=== PATIENT | female | born 1990 | race African-American/Black ===

== ENCOUNTER 2017-03-30 18:34 | Inpatient (IN) | payer BC ==
[2017-03-30 19:24] LABS: Hemoglobin 12.5 g/dL (12.0-16.0); Mean Corpuscular HGB CONC 32.9 g/dL (32.0-36.0); Mean Corpuscular Hemoglobin 26.7 pg (27.0-31.0); Mean Corpuscular Volume 81.1 fl (81.0-99.0); Platelet Count 239 thou/uL (130-400); RBC Distribution Width 19.4 % (11.5-14.5); Red Blood Cell (RBC) Count 4.69 mill/uL (4.20-5.40); White Blood Cell (WBC) Count 5.7 thou/uL (4.8-10.8)
[2017-03-30 19:43] LABS: ALT (SGPT) 37 U/L (8-55); AST (SGOT) 77 U/L (5-34); Albumin 4.3 g/dL (3.5-5.0); Alkaline Phosphatase 100 U/L (40-150); Anion Gap 15 mmol/L (10-20); BUN (Urea Nitrogen) 13 mg/dL (7.0-18.7); Bilirubin, Total 0.4 mg/dL (0.2-1.2); Calc. Creatinine Clearance 0 mL/min (70-130); Calcium 9.5 mg/dL (7.8-10.44); Carbon Dioxide 25 mmol/L (22-29); Chloride 105 mmol/L (98-107); Estimated GFR-MDRD Greater than 90; Globulin 2.8 g/dL (2.4-3.5); Glucose 95 mg/dL (70-105); Lipase 46 U/L (8-78); Protein, Total 7.1 g/dL (6.0-8.3); Sodium 141 mmol/L (136-145)
[2017-03-30 19:44] LABS: Anisocytosis SLIGHT = 6-15 cells (100X) (0-5/hpf); Band 1 % (5-11); Lymphocytes 82 % (21-51); MDiff Complete? YES; Monocytes 4 % (0-10); Neutrophil 13 % (42-75); Ovalocytes SLIGHT = 2-5 cells (100X) (0-1/hpf); PLT Morphology Comment Appears Adequate
[2017-03-30 23:25] LABS: Bilirubin Negative (Negative); Blood, Urine Negative (Negative); Clarity CLEAR (Clear); Glucose, Urine (Dipstick) Negative (Negative); Leukocyte Trace (Negative); Nitrite Negative (Negative); Protein, Urine (Dipstick) 30 mg/dL (Neg-Trace); Specific Gravity, Urine 1.025 (1.002-1.036); pH, Urine 7.5 (5.0-9.0)
[2017-03-30 23:26] LABS: Pregnancy Test - Urine (BHCG) Negative (Negative); Pregu Control Background? CLEAR/WHITE (CLR/WHITE); Pregu Control Bar Appear? YES (CONTROL BAR); Specific Gravity 1.025 (1.002-1.036)
[2017-03-30] MEDS ORDERED: Ondansetron HCl/PF 4 MG/2 ML Vial ONE (23:26)
[2017-03-30] MEDS ORDERED: Morphine 4 MG/ML VIAL ONE (23:26)
[2017-03-30 23:27] LABS: Bacteria/HPF 2+ HPF (None Seen); Hyaline Casts/LPF 0-3 HYALINE CAST LPF (0-3 Hyaline); RBC/HPF 0-3 HPF (0-3); Squamous Epithelial 0-3 HPF (0-3)
--- NOTE | 2017-03-31 00:01 | ULT ---
RIGHT UPPER QUADRANT ULTRASOUND 03/30/17 HISTORY: Epigastric pain. FINDINGS: The liver, right kidney and pancreas appear normal. There are mobile shadowing gallstones with sludge in the gallbladder without gallbladder wall thickening or pericholecystic fluid. The common duct karla sures 5 mm in diameter. No free fluid is seen in Napoles's pouch. A positive Marie's sign was repor doris by the fitness attendant. IMPRESSION: Cholelithiasis with sonographic positive Marie's sign. If there is clinical suspicion for acute chol ecystitis, further evaluation with HIDA scan should be performed. POS: [facility]
[2017-03-31] MEDS ORDERED: Piperacillin/Tazobactam 4.5 GM in Sodium Chloride 0.9% 100 ML IVPB SCH (01:00)
[2017-03-31] MEDS ORDERED: Piperacillin-Tazo-Dextrose,Iso 3.375 GM in Premix Bag 1 BAG IVPB SCH ×2 (06:45→12:00)
--- NOTE | 2017-03-31 08:14 | HP ---
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 Liver function tests are normal. White count 5, hemoglobin 12. ALLERGIES: None. TOBACCO: None. ALCOHOL: None. MEDICATIONS: None. She was given hydrocodone for a post- and she used one of these for her cu rrent biliary problems, but it did not help. PAST MEDICAL HISTORY: Noncontributory. SOCIAL HISTORY: The patient is and has 2 children. She is to return to work soon. Her husb and is working currently. REVIEW OF SYSTEMS: [place] noncontributory. PHYSICAL EXAMINATION: VITAL SIGNS: Blood pressure 120/74, respiratory rate 20, heart rate 74. HEENT: Unremarkable. Sclerae nonicteric. SKIN: Nonjaundiced. LUNGS: Clear to auscultation. CARDIAC: Regular rate and rhythm without murmur or gallop. ABDOMEN: Soft, tenderness in right upper quadrant with mild guarding. EXTREMITIES: Unremarkable. ASSESSMENT AND PLAN: Cholelithiasis, acute and chronic and cholelithiasis. I recommended laparoscop ic video cholecystectomy. Risk of infection, bleeding, visceral and biliary injury explained. She c onsents. We will plan laparoscopic cholecystectomy today and discharged postoperatively.
[2017-03-31] MEDS ORDERED: Acetaminophen 1,000 MG in Premix Bag 1 BAG IVPB SCH (08:15)
[2017-03-31] MEDS ORDERED: Scopolamine 1.5 mg/72 hour Patch TOP SCH (08:15)
[2017-03-31] MEDS ORDERED: Sodium Chloride 0.9% 1,000 ML IV SCH (08:15)
[2017-03-31] MEDS ORDERED: Ketorolac Tromethamine 30 MG/ML VIAL IVP SCH (08:15)
[2017-03-31] MEDS ORDERED: Ketorolac Tromethamine 30 MG/ML VIAL ONE (08:20)
[2017-03-31] MEDS ORDERED: Scopolamine 1.5 mg/72 hour Patch ONE (08:20)
[2017-03-31] MEDS ORDERED: Midazolam HCl 2 mg/2 ml Vial ONE (09:05)
[2017-03-31] MEDS ORDERED: Bupivacaine/Epinephrine 0.25% 30 ML VIAL ONE (09:15)
[2017-03-31] MEDS ORDERED: Fentanyl 100 MCG/2 ML VIAL ONE ×2 (11:03)
[2017-03-31] MEDS ORDERED: Dexamethasone 20 MG/5 ML VIAL ONE (13:07)
[2017-03-31] MEDS ORDERED: Lidocaine 1% PF 5 ML VIAL ONE (13:07)
[2017-03-31] MEDS ORDERED: Glycopyrrolate 0.2 MG/ML 5 ML SYRINGE ONE (13:07)
[2017-03-31] MEDS ORDERED: Ondansetron HCl/PF 4 MG/2 ML Vial ONE (13:07)
[2017-03-31] MEDS ORDERED: PROPOFOL 200 MG/20 ML VIAL ONE (13:07)
--- NOTE | 2017-03-31 13:24 | OP ---
DATE OF PROCEDURE: 03/31/2017 PREOPERATIVE DIAGNOSES: Chronic cholecystitis, cholelithiasis, 8 weeks . POSTOPERATIVE DIAGNOSES: Chronic cholecystitis, cholelithiasis, 8 weeks . PROCEDURE: Laparoscopic video cholecystectomy. SURGEON: Dr. Dick Barr ANESTHESIA: General. Local 0.25% Marcaine with epinephrine, 30 mL. PROCEDURE: The patient was taken to the operating room where under general anesthesia, abdomen was p repared with ChloraPrep, draped in routine fashion. Local anesthetic infiltrated into skin and subcu taneous tissue about each port site. Infraumbilical incision made and pneumoperitoneum to 15 mmHg ob tained with the Veress needle, replacing it with a 5 port. Video laparoscope inserted. Right latera l subcostal incision made midclavicular and anterior axillary lines and 5 ports placed. Right subxip hoid incision made and 11 port placed. Liver appeared to be normal. Gallbladder was tense. There w ere small stones obstructing the cystic duct outlet. Fundus grasped and reflected cephalad. Infundi bulum grasped and reflected laterally. Cystic artery and duct dissected free. Critical view obtaine d with pericholecystic dissection 2/3 cystic plate and cystic artery and duct doubly clipped proximal ly, divided, and gallbladder dissected free from the liver bed obtaining good hemostasis prior to div ision of final peritoneal attachments. Gallbladder and contents removed and submitted to Pathology. Good hemostasis ensured with the cautery. Irrigant and pneumoperitoneum evacuated all its skin inci sions approximated with interrupted subdermal 4-0 Monocryl and DermaGlue applied.
== END 2017-03-31 15:20 | disposition home or self-care (01) | DRG 769 ==
LOC: ERS 18:34 → ERHOLD 03-31 00:37 → SURG A 03-31 06:31
PROVIDERS: ADMIT Specialist; ATTEND Specialist
PROC: 0FT44ZZ Resection of Gallbladder, Percutaneous Endoscopic Approach (ICD-10-PCS; principal; 2017-03-31)
DX: O99.63 Diseases of the digestive system complicating the puerperium (principal); K80.10 Calculus of gallbladder with chronic cholecystitis without obstruction
CPT/HCPCS: 36415; 76705; 80053; 81003; 81015; 81025; 83690; 85025; 88304; 96361; 96365; 96375; J0131; J1100; J1885; J2001; J2250; J2270; J2405; J2543; J2704; J3010; J7050

== ENCOUNTER 2017-04-04 10:56 | Inpatient (IN) | payer BC ==
[2017-04-04] MEDS ORDERED: Promethazine HCl 25 MG/ML VIAL ONE (12:08)
[2017-04-04] MEDS ORDERED: ISOVUE-370 76%-LOCM 1 ML ONE (12:30)
[2017-04-04] MEDS ORDERED: Iopamidol 370 76% 50 ML VIAL FS ONE (12:30)
[2017-04-04 12:31] LABS: ALT (SGPT) 600 U/L (8-55); AST (SGOT) 497 U/L (5-34); Albumin 4.3 g/dL (3.5-5.0); Alkaline Phosphatase 268 U/L (40-150); Anion Gap 18 mmol/L (10-20); BUN (Urea Nitrogen) 11 mg/dL (7.0-18.7); Bilirubin, Total 4.9 mg/dL (0.2-1.2); Calc. Creatinine Clearance 0 mL/min (70-130); Calcium 10.3 mg/dL (7.8-10.44); Carbon Dioxide 25 mmol/L (22-29); Chloride 100 mmol/L (98-107); Estimated GFR-MDRD Greater than 90; Globulin 2.6 g/dL (2.4-3.5); Glucose 97 mg/dL (70-105); Lipase 24 U/L (8-78); Potassium 3.7 mmol/L (3.5-5.1); Protein, Total 6.9 g/dL (6.0-8.3); Sodium 139 mmol/L (136-145)
[2017-04-04 12:32] LABS: #Basophils 0.1 thou/uL (0.0-0.2); #Lymphocytes 1.3 thou/uL (1.20-3.40); #Monocytes 0.4 thou/uL (0.11-0.59); %Basophils 1.8 % (0.0-1.0); %Eosinophils 0.3 % (0.0-10.0); %Lymphocytes 34.6 % (21.0-51.0); %Monocytes 9.8 % (0.0-10.0); %Neutrophils 53.6 % (42.0-75.0); Hemoglobin 14.3 g/dL (12.0-16.0); Mean Corpuscular HGB CONC 32.9 g/dL (32.0-36.0); Mean Corpuscular Hemoglobin 26.8 pg (27.0-31.0); Mean Corpuscular Volume 81.4 fl (81.0-99.0); Mean Platelet Volume 10.6 fL (7.4-10.4); Platelet Count 259 thou/uL (130-400); RBC Distribution Width 19.8 % (11.5-14.5); Red Blood Cell (RBC) Count 5.33 mill/uL (4.20-5.40); White Blood Cell (WBC) Count 3.7 thou/uL (4.8-10.8)
[2017-04-04 14:27] LABS: Bilirubin Large (Negative); Blood, Urine Negative (Negative); Clarity CLEAR (Clear); Glucose, Urine (Dipstick) Negative (Negative); Leukocyte Small (Negative); Nitrite Positive (Negative); Protein, Urine (Dipstick) 30 mg/dL (Neg-Trace); Specific Gravity, Urine 1.024 (1.002-1.036)
[2017-04-04 14:29] LABS: Bacteria/HPF None Seen HPF (None Seen); Hyaline Casts/LPF 4-6 HYALINE CAST LPF (0-3 Hyaline); Pathc Cast-AUWi Flag 1.49 (0-2.49); RBC/HPF 0-3 HPF (0-3); Squamous Epithelial 0-3 HPF (0-3); WBC/HPF 0-3 HPF (0-3)
[2017-04-04 14:31] LABS: Pregnancy Test - Urine (BHCG) Negative (Negative); Pregu Control Background? CLEAR/WHITE (CLR/WHITE); Pregu Control Bar Appear? YES (CONTROL BAR); Specific Gravity 1.024 (1.002-1.036)
--- NOTE | 2017-04-04 15:26 | CT ---
CT SCAN OF ABDOMEN AND PELVIS WITH IV CONTRAST: Date: 04/04/17 HISTORY: 26-year-old female with vomiting and dizziness following gallbladder surgery done on Wednesday. FINDINGS: There is some mild linear stranding in the left base, probably minimal subsegmental atelectasis. Stat us post cholecystectomy with some postoperative changes in the operative bed region. There is some di latation of the common bile duct up to 0.8 cm with some dilatation of intrahepatic ducts as well. Thi s is a new finding when compared to the prior ultrasound study of 03/30/17. Etiology for this new renay iary tree dilatation is not definitively evidence on this study. The pancreatic duct is borderline di lated as well. Spleen is unremarkable. No renal calculus or acute obstruction. The appendix is dil ated but appears to be thin-walled and has some fecal material or debris within it. Outer diameter of the appendix approximates 0.8 cm. There is no significant periappendiceal fat stranding to suggest s ignificant acute appendicitis. There is some free fluid in the pelvis. Approximately 3.6 cm diameter cyst in the region of the left adnexa/left ovary. IMPRESSION: 1. Recent status post cholecystectomy. Interval development of dilatation of the common bile duct, c ommon hepatic and intrahepatic ducts, and pancreatic duct since the ultrasound study of 03/30/17. Parris ology is not certain, but the possibility of a distal ductal stone certainly is not excluded. 2. No renal calculus or acute obstruction. 3. The appendix measures 0.8 cm outer dimension, which is large, but there is no overt appendiceal w all thickening or periappendiceal fat stranding that would suggest acute appendicitis. 4. Cul-de-sac fluid. 5. 3.6 cm diameter left ovarian/adnexal cyst. POS: [facility]
[2017-04-04] MEDS ORDERED: Piperacillin/Tazobactam 3.375 GM in Sodium Chloride 0.9% 100 ML IVPB SCH (16:00)
[2017-04-04] MEDS ORDERED: Dextrose 50% Abboject 50 ML SYRINGE SLOW IVP PRN (17:10)
[2017-04-04] MEDS ORDERED: Dextrose 5% in Water 1,000 ML IV PRN (17:10)
[2017-04-04] MEDS ORDERED: Calcium Carbonate 500 MG ChewTAB PO PRN (17:10)
[2017-04-04] MEDS ORDERED: Mag-Al 1200 mg/1200 mg/30 ML UDCUP PO PRN (17:10)
[2017-04-04] MEDS ORDERED: hydrALAZINE 20 MG/ML VIAL SLOW IVP PRN (17:10)
[2017-04-04] MEDS ORDERED: Ondansetron HCl/PF 4 MG/2 ML Vial IVP PRN (17:10)
[2017-04-04] MEDS ORDERED: Morphine 4 MG/ML Carpuject SLOW IVP PRN ×2 (17:10→17:23)
[2017-04-04] MEDS: D5 1/2 NS w/20 mEq KCL 1,000 ML IV SCH (17:54)
[2017-04-04] MEDS: Piperacillin/Tazobactam 3.375 GM in Sodium Chloride 0.9% 100 ML IVPB SCH (17:55)
[2017-04-04] MEDS ORDERED: Promethazine 25 MG TAB PO PRN (18:17)
--- NOTE | 2017-04-04 19:08 | HP ---
CHIEF COMPLAINT: Abdominal pain, nausea, and vomiting. HISTORY OF PRESENT ILLNESS: This is a 26-year-old -[place] female who is 8 weeks , who had laparoscopic cholecystectomy by Dr. Barr last Wednesday. They called me earlier today bec ause she was not feeling well, bloated, nausea, and vomiting. Seen in the emergency department, she has been found to have elevated bilirubin. CT scan shows no abdominal fluid collection, but dilated intrahepatic and extrahepatic bile ducts. She is being readmitted for presumed retained common duct stone. She is hemodynamically stable, afebrile. PAST MEDICAL HISTORY: Otherwise negative. PAST SURGICAL HISTORY: Denies. MEDICINES: None. ALLERGIES: No known drug allergies. SOCIAL HISTORY: No smoking, alcohol, or other drugs. REVIEW OF SYSTEMS: Otherwise negative. PHYSICAL EXAMINATION: VITAL SIGNS: Pulse 75, blood pressure 139/85, temperature 98.1. She is afebrile. HEENT: Sclerae anicteric. Oropharynx clear. NECK: No lymphadenopathy. CHEST: Clear. HEART: Regular rate and rhythm. ABDOMEN: Soft, minimally distended, minimally tender at the incisions. The incisions are all healin g well without evidence of infection. LABORATORY DATA: White blood cell count is 3, hemoglobin 14, platelet count is 259. Sodium 139, pot assium 3.7, creatinine 0.71, bilirubin 4.9. AST and ALT are elevated at 497 and 600, alkaline phosph atase 268. Urine reveals positive nitrites, small leukocyte esterase, but only 0-3 wbc's. ASSESSMENT: Retained common duct stone status post laparoscopic cholecystectomy. PLAN: Admit for IV fluids, supportive care. Likely we will need ERCP. Consult GI in the morning.
[2017-04-04] MEDS: Promethazine HCl 25 MG/ML VIAL IM PRN (19:44)
[2017-04-04] MEDS: Famotidine 20 MG TAB PO SCH (20:01)
[2017-04-04] MEDS: Famotidine/PF 20 mg/2ml Vial SLOW IVP SCH (20:31)
[2017-04-05] MEDS: Piperacillin/Tazobactam 3.375 GM in Sodium Chloride 0.9% 100 ML IVPB SCH ×4 (01:01→18:40)
[2017-04-05] MEDS: D5 1/2 NS w/20 mEq KCL 1,000 ML IV SCH ×3 (01:31→17:07)
[2017-04-05] MEDS: Promethazine HCl 25 MG/ML VIAL IM PRN ×3 (01:56→21:28)
[2017-04-05] MEDS: Ketorolac Tromethamine 30 MG/ML VIAL IVP PRN ×2 (01:56→08:06)
[2017-04-05 04:20] LABS: #Eosinphils 0.1 thou/uL (0.0-0.7); #Lymphocytes 2.1 thou/uL (1.20-3.40); #Monocytes 0.5 thou/uL (0.11-0.59); #Neutrophils 1.9 thou/uL (1.40-6.50); %Basophils 0.8 % (0.0-1.0); %Eosinophils 1.6 % (0.0-10.0); %Lymphocytes 44.8 % (21.0-51.0); %Monocytes 11.1 % (0.0-10.0); %Neutrophils 41.7 % (42.0-75.0); Hemoglobin 11.8 g/dL (12.0-16.0); Mean Corpuscular HGB CONC 32.6 g/dL (32.0-36.0); Mean Corpuscular Hemoglobin 26.6 pg (27.0-31.0); Mean Corpuscular Volume 81.8 fl (81.0-99.0); Mean Platelet Volume 9.5 fL (7.4-10.4); Platelet Count 249 thou/uL (130-400); RBC Distribution Width 19.5 % (11.5-14.5); Red Blood Cell (RBC) Count 4.43 mill/uL (4.20-5.40); White Blood Cell (WBC) Count 4.6 thou/uL (4.8-10.8)
[2017-04-05 04:30] LABS: ALT (SGPT) 541 U/L (8-55); AST (SGOT) 463 U/L (5-34); Albumin 3.7 g/dL (3.5-5.0); Alkaline Phosphatase 235 U/L (40-150); Anion Gap 12 mmol/L (10-20); BUN (Urea Nitrogen) 8 mg/dL (7.0-18.7); Bilirubin, Total 4.4 mg/dL (0.2-1.2); Calc. Creatinine Clearance 0 mL/min (70-130); Calcium 9.3 mg/dL (7.8-10.44); Carbon Dioxide 27 mmol/L (22-29); Chloride 104 mmol/L (98-107); Estimated GFR-MDRD Greater than 90; Globulin 2.4 g/dL (2.4-3.5); Glucose 112 mg/dL (70-105); Lipase 60 U/L (8-78); Potassium 3.5 mmol/L (3.5-5.1); Protein, Total 6.1 g/dL (6.0-8.3); Sodium 139 mmol/L (136-145)
[2017-04-05] MEDS: Famotidine/PF 20 mg/2ml Vial SLOW IVP SCH ×2 (08:05→21:29)
[2017-04-05] MEDS: Famotidine 20 MG TAB PO SCH ×2 (08:22→20:21)
[2017-04-05 10:36] VITALS: BMI 27.4
[2017-04-05] MEDS ORDERED: Iothalamate Meglumine 60% 50 ML VIAL FS ONE (13:33)
[2017-04-05] MEDS ORDERED: PHENYLEPHRINE-NS 100 MCG/ML 10 ML SYRINGE ONE (13:40)
[2017-04-05] MEDS ORDERED: Fentanyl 100 MCG/2 ML VIAL ONE (13:40)
[2017-04-05] MEDS ORDERED: Dexamethasone 20 MG/5 ML VIAL ONE (13:40)
[2017-04-05] MEDS ORDERED: Ondansetron HCl/PF 4 MG/2 ML Vial ONE (13:40)
[2017-04-05] MEDS ORDERED: Glycopyrrolate 0.2 MG/ML 5 ML SYRINGE ONE (13:40)
[2017-04-05] MEDS ORDERED: Propofol 200 MG/20 ML VIAL ONE (13:40)
[2017-04-05] MEDS ORDERED: Succinylcholine Chloride 20 MG/ML 10 ml SYRINGE FS ONE (13:40)
[2017-04-05] MEDS ORDERED: Lidocaine 1% PF 5 ML VIAL ONE (13:40)
--- NOTE | 2017-04-05 16:11 | RAD ---
ERCP: History: Biliary dilatation. FINDINGS: Intraoperative fluoroscopy is provided for ERCP. Spot fluoroscopic images show endoscopic catheter ov erlying the duodenum with catheterization of the common duct. Opacification shows caliber at the limi ts of normal. No filling defects are reliably demonstrated. POS: [facility]
[2017-04-05] MEDS ORDERED: Promethazine HCl 25 MG/ML VIAL IM PRN (16:19)
[2017-04-05] MEDS ORDERED: Promethazine HCl 25 MG/ML VIAL SLOW IVP PRN (16:19)
[2017-04-05] MEDS ORDERED: Ondansetron HCl/PF 4 MG/2 ML Vial IVP PRN ×2 (16:19→18:53)
[2017-04-05] MEDS ORDERED: hydrALAZINE 20 MG/ML VIAL ONE (16:20)
--- NOTE | 2017-04-05 16:21 | CON ---
DATE OF CONSULTATION: 04/05/2017 REFERRING PHYSICIAN: Dr. Nikolay Cope - Dr. Dick Barr REASON FOR CONSULTATION: Abdominal pain, nausea, and vomiting, abnormal liver function tests raising the possibility of a common bile duct stone. HISTORY OF PRESENT ILLNESS: Ms. Luca Kc is a very pleasant 26-year-old female seen by Dr. Barr last week with abdominal pain, nausea, and vomiting. She had a sonogram done whic h revealed no gallstones. At that time, the CBD was measuring 5 mm. Also, liver function tests are actually not elevated except for mildly elevated AST of 77. The patient got discharged home y night after her surgery. After she got home she started having some abdominal pain, nausea, and vo miting. She was unable to keep anything down. She has no fever or chills. She came back to the ER yesterday and had an abdominal CAT scan. The CAT scan shows dilation of the common bile duct and als o intrahepatic ducts. There is no definite shadowing seen of the common bile duct. The gallbladder fossa is free of . There is no bile leak seen. Her LFTs have bumped up. Her AST is 463, ALT 5 41, alkaline phosphatase 235, bilirubin is 4.4. Her Chem-7 is normal. Lipase is at 65. Her CBC is actually normal and there is no leukocytosis. WBC 4600, hemoglobin 11.8, hematocrit 36.2. The above findings are indicative of possibly a common bile duct stone. No other relevant history. ALLERGIES: None. SOCIAL HISTORY: The patient does not smoke or drink alcohol. MEDICAL ILLNESSES: None. SURGERIES: Recent laparoscopic cholecystectomy on 03/30/[address] Barr. The only surgery. MENSTRUAL HISTORY: The patient is 2 months . FAMILY HISTORY: Unremarkable. REVIEW OF SYSTEMS: Totally unremarkable except for abdominal pain, nausea, and vomiting. PHYSICAL EXAMINATION: GENERAL: She is comfortable, in no distress. VITAL SIGNS: She is afebrile. Temperature 98.1 degrees Fahrenheit, pulse is 57, blood pressure 154/ 99. HEENT: She is icteric. NECK: Supple. No adenitis or thyromegaly noted. CARDIOVASCULAR: First and second heart sounds normal. LUNGS: Clear to auscultation. ABDOMEN: Soft. The abdomen is nondistended. Abdomen is tender over the right upper quadrant and ep igastric area. There is no rebound or guarding. No organomegaly or masses. EXTREMITIES: Reveal no edema. LABORATORY DATA: Shows a normal CBC, hemoglobin 11.8, hematocrit 36.2, WBC 4600 polymorphs 41, lymph ocytes 44, monocytes 11, hemoglobin 11.8, hematocrit 36.2. Chem-7 is normal. Bilirubin is 4.4, AST 463, ALT 541, alkaline phosphatase 236. Lipase is 60. Abdominal CAT scan done shows some dilation o f the common bile duct and intrahepatic masses. CLINICAL IMPRESSION: The patient most likely has a retained common duct stone, from the abnormal katie er function tests and abdominal pain, nausea, and vomiting. I did speak to the patient's abo ut the course of treatment which include ERCP and removal of common duct stone. Both were explained about the ERCP procedure, the risks and benefits, etc. The risks including perforation, bleeding, se psis, pancreatitis. PLAN: I will plan for the ERCP later on today.
[2017-04-05] MEDS ORDERED: Indomethacin 50 MG SUPP PR SCH (16:30)
[2017-04-05] MEDS ORDERED: Indomethacin 50 MG SUPP ONE (16:38)
[2017-04-05] MEDS ORDERED: Promethazine HCl 25 MG/ML VIAL ONE (16:54)
--- NOTE | 2017-04-05 17:49 | PRG ---
DATE OF SERVICE: 04/05/2017, 10:00 a.m. HISTORY OF PRESENT ILLNESS: Luca Kc is a 26-year-old black female status post 03/31/2017 laparo scopic cholecystectomy, admitted from the emergency room performed as an outpatient. The patient is 8 weeks , preoperative liver function tests, bile duct caliber were normal. She called pos toperatively requesting something for nausea, Saroj was called in and she was admitted over the week end by Dr. Cope in my absence on 04/04/2017 yesterday complaining of increased abdominal pain. Bi lirubin is noted to be elevated to 4 and liver function tests were elevated, bile duct was dilated on the CT scan, no significant fluid was noted. Dr. Rich has been consulted and ERCP planned toolivier y. OBJECTIVE: VITAL SIGNS: Temperature 98.1 degrees, 57, 164/91. LUNGS: Clear to auscultation. CARDIAC: Regular rate and rhythm without murmur, rub or gallop. ABDOMEN: Soft, mild tenderness. No distention. ASSESSMENT AND PLAN: Choledocholithiasis. We await ERCP by Dr. Rich.
[2017-04-05] MEDS ORDERED: Ondansetron ODT 8 MG TAB PO PRN (18:53)
[2017-04-05] MEDS ORDERED: Ondansetron ODT 4 MG TAB PO PRN (18:53)
[2017-04-05] MEDS ORDERED: Mag-Al 1200 mg/1200 mg/30 ML UDCUP PO PRN (18:53)
[2017-04-05] MEDS ORDERED: Metoclopramide HCl 10 MG/2 ML VIAL IVP PRN (18:53)
[2017-04-05] MEDS ORDERED: Ondansetron ORAL SOLN. 4 MG/5 ML UDCUP PO PRN ×2 (18:53)
[2017-04-05] MEDS ORDERED: Ondansetron ODT 8 MG TAB SL PRN (18:53)
--- NOTE | 2017-04-05 23:15 | PRG ---
DATE OF SERVICE: 04/05/2017 TIME OF VISIT: 8:00 p.m. SUBJECTIVE: Ms. Luca Kc is a 26-year-old female, who had laparoscopic cholecystectomy on 2017. The patient has developed abdominal pain, nausea, and vomiting and was found to have abnormal LFTs and dilated CBD and CAT scan. She underwent an ERCP. The ERCP was somewhat difficult and it wa s a little lengthy procedure. The patient in the postoperative area. The patient is doing wel l at the present time. She has no abdominal pain, but she complains of nausea. She actually feels h ungry and she wants to eat. OBJECTIVE: VITAL SIGNS: Stable. ABDOMEN: Soft and nontender. RECOMMENDATIONS: 1. Clear liquid diet. 2. Liver function tests and lipase tomorrow. 3. If she does well, we will consider discharge home hopefully tomorrow presuming that she has no po stoperative complications.
[2017-04-06] MEDS: Piperacillin/Tazobactam 3.375 GM in Sodium Chloride 0.9% 100 ML IVPB SCH ×3 (00:46→12:17)
[2017-04-06 04:20] LABS: ALT (SGPT) 517 U/L (8-55); AST (SGOT) 328 U/L (5-34); Albumin 3.8 g/dL (3.5-5.0); Alkaline Phosphatase 246 U/L (40-150); Bilirubin, Direct 1.2 mg/dL (0.1-0.3); Protein, Total 6.5 g/dL (6.0-8.3)
[2017-04-06 04:24] LABS: #Lymphocytes 1.3 thou/uL (1.20-3.40); #Monocytes 0.7 thou/uL (0.11-0.59); #Neutrophils 6.5 thou/uL (1.40-6.50); %Basophils 0.1 % (0.0-1.0); %Eosinophils 0.1 % (0.0-10.0); %Lymphocytes 15.5 % (21.0-51.0); %Monocytes 7.7 % (0.0-10.0); %Neutrophils 76.6 % (42.0-75.0); Hemoglobin 12.1 g/dL (12.0-16.0); Mean Corpuscular HGB CONC 31.6 g/dL (32.0-36.0); Mean Corpuscular Hemoglobin 25.9 pg (27.0-31.0); Mean Corpuscular Volume 81.8 fl (81.0-99.0); Mean Platelet Volume 9.8 fL (7.4-10.4); Platelet Count 266 thou/uL (130-400); RBC Distribution Width 19.9 % (11.5-14.5); Red Blood Cell (RBC) Count 4.67 mill/uL (4.20-5.40); White Blood Cell (WBC) Count 8.5 thou/uL (4.8-10.8)
[2017-04-06 04:33] LABS: Lipase 2067 U/L (8-78)
[2017-04-06] MEDS: Ketorolac Tromethamine 30 MG/ML VIAL IVP PRN ×2 (06:40→12:16)
--- NOTE | 2017-04-06 06:42 | OP ---
DATE OF PROCEDURE: 04/05/2017 OPERATIVE PROCEDURES: 1. Endoscopic retrograde cholangiopancreatography. 2. Papillotomy. 3. Balloon sweep of bile duct with the balloon size 9.9-12 mm. PREOPERATIVE DIAGNOSES: Status post cholecystectomy, a week ago, presents with abdominal pain and ab normal liver function tests. The CAT scan showed dilated CBD. The patient's symptoms were suggestiv e of retained bile duct stone. The patient is undergoing endoscopic retrograde cholangiopancreatogra phy. POSTOPERATIVE DIAGNOSES: 1. Normal caliber bile duct with a filling defect. 2. Normal pancreatic duct. PROCEDURE IN DETAIL: The patient was placed on her back and was given sedation by Anesthesia Departm ent and the patient was intubated. The patient was placed on her left lateral position on the fluoro scopy table. A bite block was placed. A PentHadapt video duodenoscope under direct vision was passed do wn the oropharynx, past the gastroesophageal junction, into the descending duodenum. The papilla was identified. There was no bile drainage noted. However, there was some bile staining of the papilla noted. The papilla was cannulated with a guidewire directly into the pancreatic duct. Less than 0. 5 cc of contrast injection to the pancreatic duct. Subsequently, the fluoroscopy was used to advance these guidewire into the common bile duct selectively. The scope was falling back into the stomach and advanced back into the descending duodenum again. Finally, I was able to do a papillotomy at 12 o'clock position and a 1.5 cm sized . Injection of contrast does show a filling defect probably measured at 8 mm. However, the scope fell back into the stomach and there was problem with this ins ufflation. The scope was removed. The scope was rechecked . The scope was advanced back into the descending duodenum. water. The papillotome was used to cannulate the CBD again. The beni dewire was advanced into the common bile duct. The papillotome was removed. A biliary balloon size 9.9-12 mm passed over the guidewire into the common bile duct. Injection of the contrast does not de finitely show the filling defect which I saw before. It appears that the stone probably passed out. However, the filling defect in the distal CBD which appears more . The balloon was inflated an d brought out through the papillotomy four times. There was good emptying of bile duct noted and I c ould not really see any stone coming out and it probably passed out after the papillotomy. The stoma ch was decompressed and the scope was removed. RECOMMENDATIONS: 1. Indocin suppositories . 2. Clear liquid diet. 3. CBC, LFTs and lipase tomorrow. If the patient has no untoward effects like pancreatitis, conside r discharge home tomorrow.
[2017-04-06] MEDS: Famotidine/PF 20 mg/2ml Vial SLOW IVP SCH (08:56)
[2017-04-06] MEDS: Famotidine 20 MG TAB PO SCH (08:56)
[2017-04-06] MEDS: D5 1/2 NS w/20 mEq KCL 1,000 ML IV SCH (10:32)
--- NOTE | 2017-04-06 13:57 | PRG ---
DATE OF SERVICE: 04/06/2017 HISTORY OF PRESENT ILLNESS: Luca Kc is a very pleasant 26-year-old female stat us post laparoscopic cholecystectomy in 03/30/2017. The patient came back with abdominal pain, nause a, and was found to have abnormal LFTs, dilated bile duct. She underwent ERCP, papillotomy and ballo on sweep yesterday. She has done well overnight. She has very minimal abdominal discomfort and mild nausea. She is tolerating clear liquid diet. No nausea or vomiting. PHYSICAL EXAMINATION: GENERAL: She appears comfortable in no distress. VITAL SIGNS: She is afebrile. Pulse is 67, blood pressure 128/71. CARDIOVASCULAR: Within normal limits. ABDOMEN: Very benign. Abdomen is soft and nondistended. She is mildly tender on deep palpation of the epigastric area. The lab data is markedly improved. The WBC is 8500, hemoglobin 12.1, hematocrit 38.2. Chemistry james el; bilirubin is down to 2 from 4.4. AST, ALT, and alkaline phosphatase is coming down. Unfortunate ly, she has what appears to be mild postop . Lipase 216. The patient actually feels hungry and she wants to eat. The abdominal exam is very benign. RECOMMENDATIONS: 1. Mechanical soft diet today. 2. If the patient has no abdominal pain, nausea or vomiting, consider discharge later on today or to [place]. Will follow up as an outpatient.
[2017-04-06 16:40] VITALS: BP 144/90; TEMP 98.3
--- NOTE | 2017-04-06 17:26 | PRG ---
DATE OF SERVICE: 04/06/2017 SUBJECTIVE: Ms. Kc is doing well today. Bilirubin is down to 2. She is feeling much better. Bronwyn john has minimal pain. OBJECTIVE: LUNGS: Clear to auscultation. ABDOMEN: Soft, nontender, minimal tenderness in the right upper quadrant. EXTREMITIES: Surgical wounds look good. ASSESSMENT AND PLAN: Resolved choledocholithiasis, status post endoscopic retrograde cholangiopancre atography, sphincterotomy. Liver function tests are on the improvement. She had mild elevation of h er lipase postoperatively, but she is tolerating her diet. Patient plans to discharge her home today with [id number] Tylenol and ibuprofen as needed for pain and she stated that the tramadol made her too drowsy. She does not want to be drowsy as she needs to continue to care for her young child jake. She will call me should she have any problems. Otherwise, I will see her in the office in 2-3 weeks.
--- NOTE | 2017-04-06 23:23 | DIS ---
DATE OF ADMISSION: 04/04/2017 DATE OF DISCHARGE: 04/06/2017 HISTORY: Luca mast is a 26-year-old black female, who underwent laparoscopic cholecystectomy, pre sented from the emergency room for cholelithiasis, cholecystitis, common bile duct, and liver functio n tests were normal preoperatively. Postoperatively, she did well except for some nausea and vomitin g. She presented to the emergency room with worsening pain and nausea and vomiting. Liver function tests were elevated. She was admitted, given IV fluids and Dr. Rich consulted on 04/05/2017. S he underwent ERCP, sphincterotomy, stone extraction, the ERCP was difficult. Post-procedure, the pat ient tolerated liquids next morning, her lipase was elevated although she had minimal tenderness in r ight subcostal. She is given diet, tolerated her diet and her abdomen remained soft, nontender. She is discharged home at this time, we will follow up in my office as needed. She will take Tylenol an d Motrin [id number] as needed for pain. She will call my office should she have any problems.
== END 2017-04-06 17:50 | disposition home or self-care (01) | DRG 395 ==
LOC: ERS 10:56 → SURG A 15:20
PROVIDERS: ADMIT Surgery; ATTEND Surgery
PROC: 0F798ZZ Dilation of Common Bile Duct, Via Natural or Artificial Opening Endoscopic (ICD-10-PCS; principal; 2017-04-05)
PROC: BF110ZZ Fluoroscopy of Biliary and Pancreatic Ducts using High Osmolar Contrast (ICD-10-PCS; 2017-04-05)
DX: K91.86 Retained cholelithiasis following cholecystectomy (principal); R74.8 Abnormal levels of other serum enzymes
CPT/HCPCS: 36415; 74177; 74330; 80053; 80076; 81003; 81015; 81025; 83690; 85025; 96365; 96366; 96367; 96375; J0360; J1100; J1610; J1885; J2001; J2270; J2405; J2543; J2550; J2704; J2765; J3010; J7050; Q9961; S0028

== ENCOUNTER 2017-07-19 16:17 | Emergency (ER) | payer BC ==
[2017-07-19 16:44] LABS: Hemoglobin 13.8 g/dL (12.0-16.0); Mean Corpuscular HGB CONC 33.7 g/dL (32.0-36.0); Mean Corpuscular Hemoglobin 30.2 pg (27.0-31.0); Mean Corpuscular Volume 89.4 fl (81.0-99.0); Mean Platelet Volume 8.7 fL (7.4-10.4); Platelet Count 308 thou/uL (130-400); RBC Distribution Width 12.5 % (11.5-14.5); Red Blood Cell (RBC) Count 4.56 mill/uL (4.20-5.40); White Blood Cell (WBC) Count 7.8 thou/uL (4.8-10.8)
[2017-07-19 16:55] LABS: Bilirubin Negative (Negative); Blood, Urine Negative (Negative); Clarity CLEAR (Clear); Glucose, Urine (Dipstick) Negative (Negative); Leukocyte Negative (Negative); Nitrite Negative (Negative); Protein, Urine (Dipstick) 30 mg/dL (Neg-Trace); Specific Gravity, Urine 1.031 (1.002-1.036); Urobilinogen 0.2 mg/dL (0.2-1.0)
[2017-07-19 17:03] LABS: Bacteria/HPF None Seen HPF (None Seen); Hyaline Casts/LPF 4-6 HYALINE CAST LPF (0-3 Hyaline); Pathc Cast-AUWi Flag 0.72 (0-2.49); RBC/HPF 0-3 HPF (0-3)
[2017-07-19 17:05] LABS: ALT (SGPT) 11 U/L (8-55); AST (SGOT) 13 U/L (5-34); Albumin 4.5 g/dL (3.5-5.0); Alkaline Phosphatase 76 U/L (40-150); Anion Gap 13 mmol/L (10-20); BUN (Urea Nitrogen) 14 mg/dL (7.0-18.7); Bilirubin, Total 0.4 mg/dL (0.2-1.2); Calc. Creatinine Clearance 0 mL/min (70-130); Calcium 9.6 mg/dL (7.8-10.44); Carbon Dioxide 22 mmol/L (22-29); Chloride 106 mmol/L (98-107); Estimated GFR-MDRD Greater than 90; Globulin 3.1 g/dL (2.4-3.5); Glucose 88 mg/dL (70-105); Lipase 53 U/L (8-78); Potassium 3.9 mmol/L (3.5-5.1); Protein, Total 7.6 g/dL (6.0-8.3); Sodium 137 mmol/L (136-145)
[2017-07-19 17:07] LABS: Pregnancy Test - Urine (BHCG) Negative (Negative); Pregu Control Background? CLEAR/WHITE (CLR/WHITE); Pregu Control Bar Appear? YES (CONTROL BAR); Renal Epithelial None Seen HPF (0-3); Specific Gravity 1.031 (1.002-1.036); Transitional Epithelial NONE SEEN HPF (0-3)
[2017-07-19 17:09] LABS: Band 2 % (5-11); Eosinophils 2 % (0-10); Lymphocytes 58 % (21-51); MDiff Complete? YES; Monocytes 6 % (0-10); Neutrophil 32 % (42-75); PLT Morphology Comment Appears Adequate
[2017-07-19] MEDS ORDERED: Morphine 4 MG/ML VIAL ONE (17:42)
[2017-07-19] MEDS ORDERED: Ondansetron ODT 4 MG TAB ONE ×2 (17:43→18:17)
[2017-07-19] MEDS ORDERED: ISOVUE-370 76%-LOCM 1 ML ONE (17:51)
--- NOTE | 2017-07-19 19:21 | CT ---
CT ABDOMEN AND PELVIS WITH IV CONTRAST: 07/19/2017 PROVIDED CLINICAL HISTORY: Abdominal pain. COMPARISON: 04/04/2017 FINDINGS: The visualized lung bases are free of significant opacity. Changes of a cholecystectomy are seen. Minimal pneumobilia, presumably related to prior sphincteroto my. The solid abdominal organs demonstrate an otherwise unremarkable CT appearance. There is mild free fluid present within the pelvis. There is a 4.1 cm, simple appearing, cystic stru cture within the left hemipelvis, presumably adnexal in origin. This may represent the same finding that was present on the prior examination, appearing slightly enlarged, with respect to that study. Evaluation of the pelvis is markedly limited, due to lack of enteric contrast material and paucity of fat. The appendix appears generous in caliber but is otherwise normal. There is no evidence for pn eumoperitoneum. There is no evidence for bowel obstruction. There is conspicuous colonic fecal rete ntion within the transverse and right colon. The osseous structures demonstrate no concerning lytic or blastic lesions. IMPRESSION: 1. Limited study due to lack of enteric contrast material. 2. Mild free pelvic fluid, which may be on the basis of phase of menstruation. Other etiologies are not excluded. 3. A 4 cm left pelvic cystic structure, possibly ovarian in origin. Correlation with pelvic ultraso und is recommended. POS: [facility]
== END 2017-07-19 19:39 | disposition home or self-care (01) ==
LOC: ERS 16:17
DX: K59.00 Constipation, unspecified (principal)
CPT/HCPCS: 36415; 74177; 80053; 81003; 81015; 81025; 83690; 85025; 96361; 96374; J2270; Q0162